=== PATIENT | male | born 2000 | race Caucasian/White ===

== ENCOUNTER 2021-12-16 17:13 | Emergency (ER) | payer OTHER ==
[~2021-12-16] VITALS: Ht 175.3 cm; Wt 77.6 kg
[2021-12-16 17:23] VITALS: BP 118/70; TEMP 98.6
[2021-12-16] MEDS ORDERED: EPIPEN 2-PAK1 MG/ML IM (18:19)
[2021-12-16] MEDS ORDERED: PREDNISONE20 MG PO (18:19)
[2021-12-16 18:24] VITALS: PULSE 94
== END 2021-12-16 18:24 | disposition home or self-care (01) ==
LOC: COL.ER 17:13
DX: T63.441A Toxic effect of venom of bees, accidental (unintentional), initial encounter (principal)
CPT/HCPCS: J1200; J2930